=== PATIENT | female | born 1945 | race Caucasian/White ===

== ENCOUNTER → 2016-11-21 | Outpatient (CLI) | payer OTHER | LOC: FIMAGING 07:30 | PROVIDERS: ATTEND Internal Medicine | DX: Z12.31 Encounter for screening mammogram for malignant neoplasm of breast (principal); N63 Unspecified lump in breast | CPT/HCPCS: G0202 ==

== ENCOUNTER → 2016-12-04 | Outpatient (CLI) | payer OTHER | LOC: FIMAGING 14:49 | PROVIDERS: ATTEND Internal Medicine | DX: N63 Unspecified lump in breast (principal) | CPT/HCPCS: 76641; G0206 ==

== ENCOUNTER → 2016-12-11 | Outpatient (CLI) | payer OTHER ==
[~2016-12-11] MED LIST: BUPIVACAINE 0.5% 10 ML SDV ONE; LIDO/EPI 1% **Not for Epidural 20 ML MDV ONE; LIDOCAINE 1% 300 MG/30 ML SDV ONE; THROMBIN (BOVINE) 5,000 UNIT VIAL TP ONE
== END ==
LOC: FIMAGING 07:06
PROVIDERS: ATTEND Internal Medicine
DX: C50.911 Malignant neoplasm of unspecified site of right female breast (principal); Z17.0 Estrogen receptor positive status [ER+]
CPT/HCPCS: 19081; 88360; G0206

== ENCOUNTER → 2017-01-16 | Outpatient (CLI) | payer OTHER ==
[~2017-01-16] MED LIST changes: -BUPIVACAINE 0.5% 10 ML SDV ONE; +GADOBUTROL 10 ML VIAL IVP ONE; -LIDO/EPI 1% **Not for Epidural 20 ML MDV ONE; -LIDOCAINE 1% 300 MG/30 ML SDV ONE; -THROMBIN (BOVINE) 5,000 UNIT VIAL TP ONE
== END ==
LOC: FIMAGING 09:06
PROVIDERS: ATTEND Surgery
DX: C50.411 Malignant neoplasm of upper-outer quadrant of right female breast (principal); E21.0 Primary hyperparathyroidism
CPT/HCPCS: 0159T; 78070; A9500; A9585; C8908

== ENCOUNTER 2017-01-26 06:25 | Observation (INO) | payer OTHER ==
--- NOTE | 2017-01-24 18:40 | GHP ---
[f rep st] PREOP HISTORY AND PHYSICAL DATE OF ADMISSION: 01/26/2017 HISTORY OF PRESENT ILLNESS: The patient is a 71-year-old female, who was diagnosed with both a right breast cancer and hyperparathyroidism. The patient was initially found to have a suspicious area of her right breast on a mammogram located in the upper quadrants lateral to the nipple line. This was followed by ultrasound which characterized it as a mildly suspicious hypoechoic lesion at about 11 t o 12 o'clock position about 4 to 5 cm from the nipple, corresponding to the mammographic abnormality. The area was biopsied using ultrasound guidance and clip deployment. Ultimately, pathology reveale d a [place] grade 1, ER positive, ND positive, HER2 equivocal invasive lobular carcinoma without l ymphovascular invasion. She had an MRI that only showed enhancement of an 8 mm spiculated nodule at the 12 o'clock position consistent with her biopsy-proven cancer. All the while, the patient was being worked up for hypercalcemia. She was found to have an elevated parathyroid hormone, and so we obtained a nuclear medicine parathyroid scan. This showed a likely le ft lower pole adenoma. After much discussion, patient opted for a right breast lumpectomy with needl e localization and sentinel node biopsy, possible axillary node dissection, as well as a parathyroide ctomy. Risks and options have been discussed including, but not limited to, bleeding, infection, inj ury to nerve, need for further surgery, need for axillary node dissection, hypocalcemia, failure to f ind parathyroid, loss of voice or hoarseness, damage to surrounding structures, recurrent hyperparath yroidism and other problems, and she requests to proceed. PAST MEDICAL HISTORY: From chart review, involves early stage colon cancer in 2006, treated with par tial colectomy, hysterectomy and oophorectomy for endometriosis, hypertension, as describe d above, hypercholesteremia, hypothyroidism. MEDICATIONS: Atorvastatin, diclofenac, lisinopril, hydrochlorothiazide, Synthroid, vitamin D3. ALLERGIES: Versed resulted in psychosis and hallucinations. REVIEW OF SYSTEMS: See HPI. PHYSICAL EXAMINATION: GENERAL: Reveals a well-developed, well-nourished 71-year-old female, alert a nd oriented x3, in no acute distress. HEENT: Normocephalic, atraumatic. No palpable thyromegaly or masses or lymphadenopathy. CHEST: Clear to auscultation bilaterally. CARDIAC: Regular rate and r hythm. ABDOMEN: Soft, nontender. EXTREMITIES: Warm and dry. BREASTS: Site consistent with recen t needle biopsy. No definite masses or axillary lymphadenopathy. No nipple inversion or drainage. No skin thickening or dimpling. 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 PLAN: Plan is to proceed with a right breast lumpectomy with sentinel lymph node biopsy. This will require localization. We will also perform a parathyroidectomy. Again, risks and options have been discussed and she requests to proceed. /[id number]/MODL
[2017-01-26] MEDS ORDERED: ceFAZolin 2 GM/SWFI 2 GM/20 ML SYR IVP ONE ×2 (06:52→10:45)
[2017-01-26] MEDS ORDERED: LR 1,000 ML IV ONE (06:53)
[2017-01-26 08:00] LABS: ANION GAP 8 mEq/L (8-16); CALCIUM 10.6 mg/dL (8.5-10.4); CARBON DIOXIDE 26 mEq/l (22-31); CHLORIDE 107 mEq/L (97-110); CREATININE 0.9 mg/dL (0.6-1.0); GLOMERULAR FILTRATION RATE > 60; GLUCOSE 95 mg/dL (70-100); POTASSIUM 4.4 mEq/L (3.5-5.2); SODIUM 141 mEq/L (134-144)
[2017-01-26] MEDS ORDERED: LIDOCAINE 1% 300 MG/30 ML SDV ONE ×2 (08:01→12:37)
--- NOTE | 2017-01-26 08:28 | PDHPUP ---
History & Physical Update H&P update statement: This history and physical update is based on an assessment of the patient which was completed after admission or registration (within 24 hours), but prior to the surgery/procedure. H&P update: H&P reviewed & patient examined, no change in patient's condition since H&P completed
[2017-01-26] MEDS ORDERED: PROPOFOL/EMULSION 500 MG/50 ML BOTTLE IV ONE ×2 (12:25)
[2017-01-26] MEDS ORDERED: fentaNYL 250 MCG/5 ML INJ ONE (12:25)
[2017-01-26] MEDS ORDERED: THROMBIN (BOVINE) 5,000 UNIT VIAL TP ONE ×2 (12:37→14:32)
[2017-01-26] MEDS ORDERED: BACITRACIN ZINC 14.2 GM OINTTUBE TP ONE (12:37)
[2017-01-26] MEDS ORDERED: SODIUM BICARBONATE 10 MEQ/10 ML SYR IVP ONE (12:38)
[2017-01-26] MEDS ORDERED: BUPIVACAINE 0.5% 30 ML SDV ONE (12:38)
[2017-01-26] MEDS ORDERED: PROMETHAZINE HCL 25 MG/ML INJ IVP PRN (12:53)
[2017-01-26] MEDS ORDERED: LR 500 ML IV PRN (12:53)
[2017-01-26] MEDS ORDERED: METOCLOPRAMIDE 10 MG/2 ML VIAL IVP PRN (12:53)
[2017-01-26] MEDS ORDERED: OXYCODONE/APAP 5/325 TAB PO PRN (12:53)
[2017-01-26] MEDS ORDERED: ONDANSETRON 4 MG/2 ML VIAL IVP PRN ×2 (12:53→16:18)
[2017-01-26] MEDS ORDERED: ACETAMINOPHEN 500 MG TAB PO PRN (12:53)
[2017-01-26] MEDS ORDERED: NALOXONE HCL 0.4 MG/ML INJ IVP PRN (12:53)
[2017-01-26] MEDS ORDERED: MEPERIDINE 25 MG/ML SYR IVP PRN (12:53)
[2017-01-26] MEDS ORDERED: ALBUTEROL 3 ML DEYVIAL IH PRN (12:53)
[2017-01-26] MEDS ORDERED: DEXAMETHASONE 4 MG/ML VIAL IVP PRN (12:53)
[2017-01-26] MEDS ORDERED: HYDROCODONE/APAP 5/325 TAB PO PRN ×2 (12:53→16:18)
--- NOTE | 2017-01-26 12:53 | PDANEPAE ---
ANE History of Present Illness 71 year old woman with R breast cancer and parathyroid adenoma for resection. ANE Past Medical History - Cardiovascular History Hx Hypertension: Yes Hx Arrhythmias: No Hx Chest Pain: No Hx Coronary Artery / Peripheral Vascular Disease: No Hx CHF / Valvular Disease: No Hx Palpitations: No Cardiovascular History Comment: pcp monitors bp. hyperlipidemia - Pulmonary History Hx COPD: No Hx Asthma/Reactive Airway Disease: No Hx Recent Upper Respiratory Infection: No Hx Oxygen in Use at Home: No Hx Sleep Apnea: No Sleep Apnea Screening Result - Last Documented: Negative - Neurologic History Hx Cerebrovascular Accident: No Hx Seizures: No Hx Dementia: No Neurologic History Comment: DDD. spondylosis - Endocrine History Hx Diabetes: No Endocrine History Comment: hypothyroidism - Renal History Hx Renal Disorders: No - Liver History Hx Hepatic Disorders: No - Neurological & Psychiatric Hx Hx Neurological and Psychiatric Disorders: No - Cancer History Hx Cancer: Yes Cancer History Comment: cancerous polyp 2006. current breast - Congenital Disorder History Hx Congenital Disorders: No - GI History Hx Gastrointestinal Disorders: Yes Gastrointestinal History Comment: hx of colon resection - Other Health History Other Health History: none - Chronic Pain History Chronic Pain: No - Surgical History Prior Surgeries: breast bx. lumpectomy 15 yrs ago with Whitaker. hysterectomy 13 yrs ago. bowel resection for cancerous polyp 2006 ANE Review of Systems Review of Systems: - Exercise capacity METS (RN): 4 METS ANE Patient History - Allergies Allergies/Adverse Reactions: midazolam [From Versed] Allergy (Verified 01/25/17 12:21) Other-Enter Comments - Home Medications Home Medications: Atorvastatin Calcium HS 01/25/17 [Last Taken 01/25/17 08:30] Benazepril/Hydrochlorothiazide 01/25/17 [Last Taken 01/25/17 05:30] Diclofenac Sodium 01/25/17 [Last Taken 01/20/17] Synthroid 01/25/17 [Last Taken 01/26/17 05:30] VITAMIN D 01/25/17 [Last Taken 01/25/17 20:30] - NPO status NPO Since - Liquids (Date): 01/25/17 NPO Since - Liquids (Time): 20:30 NPO Since - Solids (Date): 01/25/17 NPO Since - Solids (Time): 20:00 - Smoking Hx Smoking Status: Former smoker - Family Anes Hx Family Hx Anesthesia Complications: father responded to versed the same way ANE Labs/Vital Signs - Labs Result Diagrams: 01/26/17 07:30 - Vital Signs Blood Pressure: 155/90 Heart Rate: 69 Respiratory Rate: 17 O2 Sat (%): 94 Height: 170.18 cm Weight: 79.379 kg ANE Physical Exam - Airway Mallampati Score: Class 2 Mouth exam: normal dental/mouth exam - Pulmonary Pulmonary: no respiratory distress - Cardiovascular Cardiovascular: regular rate and rhythym - ASA Status ASA Status: II
[2017-01-26] MEDS ORDERED: HYDROmorphONE/DILAUDID 1 MG/ML INJ ONE (15:15)
[2017-01-26] MEDS ORDERED: fentaNYL 100 MCG/2 ML INJ ONE ×2 (15:15→15:44)
--- NOTE | 2017-01-26 15:15 | POSTANESTH ---
Post Anesthetic Evaluation Respiratory Status: Normal, Stable Level of Consciousness/Mental Status: Mildly Sleepy, Arousable Pain Control: Adequate, Prn Tx Ordered Nausea/Vomiting Control: Adequate, Prn Tx Ordered Complications Possibly Related to Anesthesia: None Noted
[2017-01-26] MEDS: HYDROmorphONE/DILAUDID 1 MG/ML INJ IVP PRN ×4 (15:18→15:53)
[2017-01-26] MEDS: fentaNYL 100 MCG/2 ML INJ IVP PRN ×3 (15:18→15:46)
[2017-01-26] MEDS ORDERED: LABETALOL HCL 5 MG/ML 20 ML MDV ONE (15:21)
[2017-01-26] MEDS: LABETALOL HCL 50 MG/10 ML SYR IVP PRN ×2 (15:25→15:41)
[2017-01-26] MEDS ORDERED: HYDROCODONE/APAP 5/325 TAB ONE (16:08)
[2017-01-26] MEDS ORDERED: ACETAMINOPHEN 325 MG TAB PO PRN (16:18)
[2017-01-26] MEDS ORDERED: HYDROmorphONE/DILAUDID 1 MG/ML INJ IVP PRN (16:18)
[2017-01-26] MEDS ORDERED: D5W 1/2 NS 1,000 ML IV SCH (16:30)
[2017-01-26] MEDS ORDERED: DICLOFENAC SODIUM 75 MG TAB PO PRN (17:26)
[2017-01-26] MEDS ORDERED: NON-FORMULARY NEW DRUG (Benazepril/Hydrochlorothiazide [Benazepril-Hctz 20-25 Mg Tab] 1 EA PO SCH (17:30)
[2017-01-26] MEDS: BENAZEPRIL HCL 20 MG TAB PO SCH (18:12)
[2017-01-26] MEDS: HYDROCHLOROTHIAZIDE 25 MG TAB PO SCH (18:12)
[2017-01-26] MEDS ORDERED: CHOLECALCIFEROL VIT D3 2,000 UNITS TAB/CAP PO SCH (21:00)
[2017-01-26] MEDS ORDERED: ATORVASTATIN CALCIUM 20 MG TAB PO SCH (21:00)
[2017-01-26] MEDS ORDERED: ERGOCALCIFEROL 2000 UNIT PO SCH (21:00)
[2017-01-26] MEDS: OXYCODONE/APAP 5/325 TAB PO PRN (21:03)
[2017-01-26 21:29] VITALS: RESP 16
[2017-01-27] MEDS: OXYCODONE/APAP 5/325 TAB PO PRN ×2 (02:54→09:29)
[2017-01-27] MEDS ORDERED: LEVOTHYROXINE 150 MCG TAB PO SCH (06:00)
[2017-01-27 07:09] VITALS: BP 127/70; PULSE 59; TEMP 98; O2SAT 94
[2017-01-27] MEDS: HYDROCHLOROTHIAZIDE 25 MG TAB PO SCH (09:28)
[2017-01-27] MEDS: BENAZEPRIL HCL 20 MG TAB PO SCH (09:29)
--- NOTE | 2017-01-27 10:34 | ASDISCHSUM ---
Discharge Information Plan Status:Home with No Needs Medically Cleared to Leave:01/27/2017 Discharge Date:01/27/2017 10:20 AM CM D/C Disposition:Home, Routine, Self-Care ADT D/C Disposition:Home, Routine, Self-Care Projected Discharge Date:01/27/2017 10:20 AM Transportation at D/C:Family Discharge Delay Reason: Follow-Up Date:01/27/2017 10:20 AM Discharge Slot:1 - 8:01 am - 12:00 noon Final Diagnosis:Breast and lymph node bx, parathyroidectomy resection of L parathyroid adenoma Placement Information Patient Contact Information Contact Name:ELIU Relationship: Address:[facility] [address] City:[place] Alternate Phone: State/Zip Code:[place] [address] Email: Financial Information Financial Class:Medicare Advantage Plans Primary Plan Desc:[facility] ADVANTAGE PLANS Primary Plan Number:[id number] Secondary Plan Desc: Secondary Plan Number: Assessment Information [facility] CM Progress Note CM Note CM Note Notes: Reviewed chart regarding discharge plan of care, pt's progress. Pt admitted for breast cancer and hyperparathyroidism, s/p breast/lymph node biopsies and parathyroidectomy resection. Per MD notes, pt to discharge home w/ family support and no identified needs. IM not signed, not applicable. Pt to follow up as directed. CM available for any further issues or concerns. Current Discharge Plan: Home independently w/ family support Date Signed: 01/27/2017 10:33 AM Electronically Signed By:Kelsy Tiwari RN Intervention Information
--- NOTE | 2017-02-12 05:49 | GOP ---
[f rep st] OPERATIVE REPORT DATE OF OPERATION: 01/26/2017 SURGEON: Luther Whitaker MD PREOPERATIVE DIAGNOSIS: Right breast cancer. POSTOPERATIVE DIAGNOSIS: Right breast cancer. PROCEDURE PERFORMED: Right needle localization lumpectomy and right sentinel node biopsy. FINDINGS: Patient has a negative sentinel node. The tumor was seen to be in the specimen. DESCRIPTION OF PROCEDURE: The patient was taken to the operating room where she received satisfactor y general endotracheal anesthesia. She was placed in supine position with the right arm outstretched on arm board. Using a gamma probe, the sentinel node area was identified. A short incision was mad e at the base of the axilla. Dissection was extended down through the subcutaneous tissue. Similar node was identified. It was dissected free from surrounding areas. Hemostasis obtained by hemoclips and electrocautery and 3-0 Vicryl ties. The specimen was sent to Pathology. Wound was infiltrated with 0.5% Marcaine and infiltrated with some topical thrombin. Subcu was closed with 3-0 Vicryl and the skin with a 4-0 Monocryl subcuticular stitch. Attention was turned to the breast lesion. A curv ilinear incision was made and carried down through subcutaneous tissue. It was carried down to the n eedle localization site and a full thickness generous biopsy was taken around the needle localization site. Hemostasis was obtained. The specimen was sent to x-ray and confirmed to contain the target and the clip. Wound was infiltrated with 0.5% Marcaine. Sub topical thrombin was placed in the cavi ty. Breast tissue was approximated in layers with 3-0 Vicryl in a mammoplasty technique and the skin was closed with 4-0 Monocryl subcuticular stitch. She tolerated the procedure well. There were no complications. She was taken to the recovery room in good condition. /[id number]/MODL
--- NOTE | 2017-02-12 06:09 | GOP ---
[f rep st] OPERATIVE REPORT DATE OF OPERATION: 01/26/2017 SURGEON: Luther Whitaker MD AUCTION ASSISTANT: LINDA Soares. PREOPERATIVE DIAGNOSIS: Hyperparathyroidism. POSTOPERATIVE DIAGNOSIS: Hyperparathyroidism. Teo's thyroiditis. PROCEDURE PERFORMED: 1. Parathyroid exploration with resection of adenoma. 2. Wedge thyroid excisional biopsy. FINDINGS: The patient was found to have a large adenoma in the left lower pole position, which appea red to be an over 500 mg adenoma. In addition, the PTH level dropped from 140 down to 25 after remov al of the adenoma. DESCRIPTION OF PROCEDURE: The patient was taken to the operating room where she received satisfactor y general endotracheal anesthesia. A low collar type incision was made and carried through the platy sma. The strap muscles were in the midline. The left lobe of the thyroid was mobilized. It was quite hard and thickened. Dissection extended around and eventually the adenoma was identifie d in the left lower pole position. This was dissected free. Hemostasis was obtained by hemoclips an d the Harmonic scalpel. Multiple PTH levels were then drawn at 10 minutes and 15 minutes after the r emoval of the adenoma. In the meantime, the thyroid was further evaluated. A hard nodule was excise d from the thyroid and sent out as a frozen section. It was thought to be probable Teo's thyro iditis with no evidence of malignancy. The wound was irrigated. Hemostasis was assured. Some topic al thrombin was placed in the cavity. The strap muscles were approximated with 3-0 Vicryl. Platysma was closed with a running 3-0 Vicryl suture, and the skin with a 4-0 Monocryl subcuticular stitch. She tolerated the procedure well. There were no complications. /[id number]/MODL
== END 2017-01-27 10:20 | disposition home or self-care (01) ==
LOC: F3N 06:25 → F3E 16:31
PROVIDERS: ADMIT Surgery; ATTEND Surgery
PROC: 0GBR0ZX Excision of Parathyroid Gland, Open Approach, Diagnostic (ICD-10-PCS; principal; 2017-01-26 12:00)
PROC: 0GBH0ZZ Excision of Right Thyroid Gland Lobe, Open Approach (ICD-10-PCS; principal; 2017-01-26 12:00)
PROC: 0HBT0ZZ Excision of Right Breast, Open Approach (ICD-10-PCS; principal; 2017-01-26 12:00)
PROC: 07B50ZZ Excision of Right Axillary Lymphatic, Open Approach (ICD-10-PCS; principal; 2017-01-26 12:00)
PROC: 3E0W3HZ Introduction of Radioactive Substance into Lymphatics, Percutaneous Approach (ICD-10-PCS; 2017-01-26 12:00)
DX: C50.411 Malignant neoplasm of upper-outer quadrant of right female breast (principal); E21.0 Primary hyperparathyroidism; D35.1 Benign neoplasm of parathyroid gland; I10 Essential (primary) hypertension; E03.9 Hypothyroidism, unspecified; E78.5 Hyperlipidemia, unspecified; Z85.038 Personal history of other malignant neoplasm of large intestine
CPT/HCPCS: 19281; 19301; 38525; 60200; 60500; 76098; 78195; 88305; 88307; 88331; 88341; 88342; A9520; G0378; J0690; J1170; J2704; J3010; J3490; J0171

== ENCOUNTER → 2017-02-12 | Outpatient (CLI) | payer OTHER | LOC: BRMIMAGING 09:59 | PROVIDERS: ATTEND Internal Medicine Hematology & Oncology | DX: Z13.820 Encounter for screening for osteoporosis (principal); M85.88 Other specified disorders of bone density and structure, other site ==

== ENCOUNTER → 2017-11-23 | Outpatient (CLI) | payer OTHER | LOC: FIMAGING 09:01 | PROVIDERS: ATTEND Internal Medicine Hematology & Oncology | DX: Z12.31 Encounter for screening mammogram for malignant neoplasm of breast (principal); Z85.3 Personal history of malignant neoplasm of breast ==